=== PATIENT | male | born 1955 | race Caucasian/White ===

== ENCOUNTER 2017-04-01 23:54 | Emergency (ER) | payer BC, OTHER ==
[~2017-04-01] VITALS: Ht 185.4 cm; Wt 93.3 kg
[2017-04-01 23:56] VITALS: TEMP 36.7; Ht 185.4 cm; Wt 93.3 kg
[2017-04-02] MEDS ORDERED: ONDANSETRON INJ 2 MG/ML 2 ML VIAL IV STA (00:13)
[2017-04-02] MEDS ORDERED: MoRPHine SULFATE 4 MG/ML 1 ML CARP\\VIAL IV ONE ×2 (00:15→02:45)
[2017-04-02] MEDS ORDERED: SODIUM CHLORIDE 0.9% 1000ML 1,000 ML IV ONE (00:15)
[2017-04-02] MEDS ORDERED: MONT1TAB3 PO (00:21)
[2017-04-02] MEDS ORDERED: ALBU18002 INH (00:22)
[2017-04-02 00:55] LABS: BASO % 0.3 %; BASO ABS # 0.01 K/uL (0-0.2); COMPLETE YES; EOS % 2.4 %; HEMATOCRIT 40.9 % (42-52); IG% 0.3 %; LYMPH % 48.3 %; MEAN CELL VOLUME 87.4 fL (80-100); MEAN CORPUSCULAR HGB CONC 35.5 g/dl (32-36); MEAN PLATELET VOLUME 8.6 fL (7.4-10.4); MONO % 9.7 %; PLATELET COUNT 243 K/uL (130-400); RED BLOOD COUNT 4.68 M/uL (4.7-6.1); WHITE BLOOD COUNT 3.73 K/uL (4.8-10.8)
[2017-04-02 01:13] LABS: BUN/CREATININE RATIO 14.2 (10-20); CALCIUM 9.1 mg/dl (8.5-10.1); CREATININE 0.85 mg/dl (0.60-1.40); POTASSIUM 3.5 mmol/L (3.5-5.1)
[2017-04-02 01:16] LABS: ALB/GLOB RATIO 0.9 (0.9-2)
[2017-04-02 03:11] LABS: URINE APPEARANCE CLEAR (CLEAR); URINE BILIRUBIN NEG (NEG); URINE COLOR YELLOW; URINE NITRITE NEG (NEG); URINE PH 6.5 (4.5-7.5); UROBILINOGEN NEG (NEG); ZZUR CULT IF INDIC CLEAN CATCH NO
[2017-04-02 03:13] LABS: MANUAL MICROSCOPIC REQUIRED? NO; REVIEW REQ? NO
[2017-04-02] MEDS ORDERED: PANTOprazole SOD 40 MG TAB PO STA (04:12)
[2017-04-02] MEDS ORDERED: GI COCKTAIL PO ONE (04:15)
[2017-04-02] MEDS ORDERED: NORCO 5/325MG HOME PACK PO ONE (04:15)
[2017-04-02] MEDS ORDERED: PANT40TA PO (04:19)
[2017-04-02 04:25] VITALS: BP 134/85; PULSE 63; O2SAT 93
[2017-04-02] MEDS ORDERED: ALUMINUM/MAGNESIUM SUSP 30 ML UDC ONE (04:43)
[2017-04-02] MEDS ORDERED: LIDOCAINE HCL 2% VISC SOLN 20 ML UDC ONE (04:43)
--- NOTE | 2017-04-02 07:41 | DIAGNOSTIC IMAGING REPORT ---
CT SCAN OF THE ABDOMEN AND PELVIS WITHOUT IV CONTRAST CLINICAL HISTORY: Right lower quadrant abdominal pain. COMPARISON STUDY: Abdominal ultrasound dated 04/02/2017. TECHNIQUE: CT scan of the abdomen and pelvis is performed from the lung bases to the proximal femora. Images are reviewed in the axial, sagittal, and coronal planes. IV contrast was not administered for this examination as per the referring clinician due to a reported history of contrast allergy. Note that the examination is suboptimal without IV contrast. Oral contrast was utilized. Automated dose control exposure was utilized. CT DOSE: 727.94 mGy.cm FINDINGS: Lung bases: The heart is normal in size and without pericardial effusion. There is a 10 mm left lower lobe pulmonary nodule partially seen on image #1. The lung bases are otherwise clear. There is a small hiatal hernia. Liver: The unenhanced liver is normal in size, contour, and attenuation. There is no intrahepatic biliary ductal dilatation. Gallbladder: Unremarkable. Spleen: Normal in size and attenuation. Pancreas: Unremarkable. Adrenal glands: Unremarkable. Kidneys: The unenhanced kidneys are normal in size and without hydronephrosis. There are no renal calculi identified. There is no evidence of contour deforming renal mass lesion. Abdominal vasculature: The abdominal aorta is normal in course and caliber noting mild atherosclerotic calcification. Bowel: The small bowel and colon are normal in course and caliber. The appendix is well-visualized and normal. Peritoneum: There is no intraperitoneal free air or abdominal ascites. There is a fat-containing umbilical hernia. Lymphadenopathy: None. Pelvic viscera: The bladder, prostate, and seminal vesicles are normal as imaged. Skeletal structures: No lytic or blastic lesions are seen. IMPRESSION: 1. Suboptimal examination without IV contrast. 2. There are no acute infectious or inflammatory findings in the abdomen or pelvis. 3. A 10 mm left lower lobe pulmonary nodule is partially imaged. Follow-up with a nonemergent chest CT is recommended for further assessment of the thorax. Electronically signed by: Darwin Tavarez M.D. 04/02/2017 7:40 AM Dictated Date/Time: 04/02/2017 7:35 AM
--- NOTE | 2017-04-02 09:02 | DIAGNOSTIC IMAGING REPORT ---
ULTRASOUND RIGHT UPPER QUADRANT ABDOMEN CLINICAL HISTORY: Right-sided abdominal pain. COMPARISON STUDY: No priors. TECHNIQUE: Real-time, grayscale, and color flow sonography of the right upper quadrant of the abdomen was performed. Images are reviewed in the transverse and longitudinal planes. FINDINGS: Liver: The liver is normal in size and echotexture. There is no intrahepatic biliary ductal dilatation. The main portal vein is patent. Gallbladder: The gallbladder is normal in appearance. No gallstones are identified. There is no gallbladder wall thickening or pericholecystic fluid. A sonographic Taylor's sign is reportedly absent. The common bile duct measures up to 0.4 cm in diameter. Pancreas: Visualized portions of the pancreatic head are normal in appearance. The majority of the pancreas was not well seen. Right kidney: Survey images of the right kidney demonstrate normal size and echotexture. There is no hydronephrosis. Ascites: None. IMPRESSION: No acute sonographic abnormality is identified in the right upper quadrant. No gallstones are seen. Electronically signed by: Darwin Tavarez M.D. 04/02/2017 9:01 AM Dictated Date/Time: 04/02/2017 9:00 AM
--- NOTE | 2017-04-03 01:56 | EMERGENCY ROOM VISIT NOTE ---
History First contact with patient: 00:01 Chief Complaint: ABDOMINAL PAIN Stated Complaint: STOMACH PAINS Nursing Triage Summary: patient reports worsening abdominal and back pain,patient reports pain for 2 weeks History of Present Illness The patient is a 61 year old male who presents to the Emergency Room with complaints of abdominal pain for the past 2 weeks. The patient is intermittent and does not improve or worsen with food. The patient has not had fever or chills. He is nauseated without vomiting. No lower abdominal tenderness. He does not report a history of abdominal surgery in the past. The patient is usually healthy and rates his discomfort tonight a 7/10. He has not had recent travel history. He started [id number] Zantac today. Review of Systems More than 10 systems were reviewed and otherwise negative with the exception of history of present illness. Past Medical/Surgical History No pertinent chronic medical disease Family History No pertinent family history Social History Smoking Status: Never Smoker Housing Status: lives with family Current/Historical Medications Scheduled Albuterol Sulfate (Proair Respiclick), 1 DOSE INH DIRECTED Montelukast Sodium (Singulair), 10 MG PO DAILY Pantoprazole (Protonix), 40 MG PO DAILY Allergies Coded Allergies: Shellfish (Verified Allergy, Severe, anaphalaxis, 04/02/17) Tramadol (Unverified Allergy, Unknown, itchy, 04/02/17) Physical Exam Vital Signs Date Time Temp Pulse Resp B/P (MAP) Pulse Ox O2 Delivery O2 Flow Rate FiO2 04/02/17 04:25 63 17 134/85 93 Room Air 04/02/17 03:20 04/02/17 03:08 65 19 147/90 95 04/02/17 01:55 19 131/92 04/01/17 23:56 36.7 72 18 152/105 99 Room Air Pain Rating (0-10): 8.0 Physical Exam VITALS: Vitals are noted on the nurse's note and reviewed by myself. Vital signs stable. GENERAL: Well-developed, well-nourished, white male, who is in no acute distress and resting comfortably. Patient is cooperative with the examination. HEAD: Normocephalic atraumatic. HEART: Regular rate and rhythm without murmurs gallops or rubs. LUNGS: Clear to auscultation bilaterally without wheezes, rales or rhonchi. No retractions or accessory muscle use. ABDOMEN: Positive normal bowel sounds x 4. Soft with epigastric tenderness on palpation. No lower abdominal tenderness. No rebound. No guarding. MUSCULOSKELETAL: No muscle atrophy, erythema, or edema noted. Full range of motion without joint tenderness in all extremities. Medical Decision & Procedures ER Provider Diagnostic Interpretation: CT SCAN OF THE ABDOMEN AND PELVIS WITHOUT IV CONTRAST CLINICAL HISTORY: Right lower quadrant abdominal pain. COMPARISON STUDY: Abdominal ultrasound dated 04/02/2017. TECHNIQUE: CT scan of the abdomen and pelvis is performed from the lung bases to the proximal femora. Images are reviewed in the axial, sagittal, and coronal planes. IV contrast was not administered for this examination as per the referring clinician due to a reported history of contrast allergy. Note that the examination is suboptimal without IV contrast. Oral contrast was utilized. Automated dose control exposure was utilized. CT DOSE: 727.94 mGy.cm FINDINGS: Lung bases: The heart is normal in size and without pericardial effusion. There is a 10 mm left lower lobe pulmonary nodule partially seen on image #1. The lung bases are otherwise clear. There is a small hiatal hernia. Liver: The unenhanced liver is normal in size, contour, and attenuation. There is no intrahepatic biliary ductal dilatation. Gallbladder: Unremarkable. Spleen: Normal in size and attenuation. Pancreas: Unremarkable. Adrenal glands: Unremarkable. Kidneys: The unenhanced kidneys are normal in size and without hydronephrosis. There are no renal calculi identified. There is no evidence of contour deforming renal mass lesion. Abdominal vasculature: The abdominal aorta is normal in course and caliber noting mild atherosclerotic calcification. Bowel: The small bowel and colon are normal in course and caliber. The appendix is well-visualized and normal. Peritoneum: There is no intraperitoneal free air or abdominal ascites. There is a fat-containing umbilical hernia. Lymphadenopathy: None. Pelvic viscera: The bladder, prostate, and seminal vesicles are normal as imaged. Skeletal structures: No lytic or blastic lesions are seen. IMPRESSION: 1. Suboptimal examination without IV contrast. 2. There are no acute infectious or inflammatory findings in the abdomen or pelvis. 3. A 10 mm left lower lobe pulmonary nodule is partially imaged. Follow-up with a nonemergent chest CT is recommended for further assessment of the thorax. ULTRASOUND RIGHT UPPER QUADRANT ABDOMEN CLINICAL HISTORY: Right-sided abdominal pain. COMPARISON STUDY: No priors. TECHNIQUE: Real-time, grayscale, and color flow sonography of the right upper quadrant of the abdomen was performed. Images are reviewed in the transverse and longitudinal planes. FINDINGS: Liver: The liver is normal in size and echotexture. There is no intrahepatic biliary ductal dilatation. The main portal vein is patent. Gallbladder: The gallbladder is normal in appearance. No gallstones are identified. There is no gallbladder wall thickening or pericholecystic fluid. A sonographic Taylor's sign is reportedly absent. The common bile duct measures up to 0.4 cm in diameter. Pancreas: Visualized portions of the pancreatic head are normal in appearance. The majority of the pancreas was not well seen. Right kidney: Survey images of the right kidney demonstrate normal size and echotexture. There is no hydronephrosis. Ascites: None. IMPRESSION: No acute sonographic abnormality is identified in the right upper quadrant. No gallstones are seen. Laboratory Results 04/02/17 00:41 Red Blood Count 4.68, Mean Corpuscular Volume 87.4, Mean Corpuscular Hemoglobin 31.0, Mean Corpuscular Hemoglobin Concent 35.5, Mean Platelet Volume 8.6, Neutrophils (%) (Auto) 39.0, Lymphocytes (%) (Auto) 48.3, Monocytes (%) (Auto) 9.7, Eosinophils (%) (Auto) 2.4, Basophils (%) (Auto) 0.3, Neutrophils # (Auto) 1.46, Lymphocytes # (Auto) 1.80, Monocytes # (Auto) 0.36, Eosinophils # (Auto) 0.09, Basophils # (Auto) 0.01 04/02/17 00:41 Test 04/02/17 00:41 04/02/17 02:28 White Blood Count 3.73 K/uL (4.8-10.8) Red Blood Count 4.68 M/uL (4.7-6.1) Hemoglobin 14.5 g/dL (14.0-18.0) Hematocrit 40.9 % (42-52) Mean Corpuscular Volume 87.4 fL (80-100) Mean Corpuscular Hemoglobin 31.0 pg (25-34) Mean Corpuscular Hemoglobin Concent 35.5 g/dl (32-36) Platelet Count 243 K/uL (130-400) Mean Platelet Volume 8.6 fL (7.4-10.4) Neutrophils (%) (Auto) 39.0 % Lymphocytes (%) (Auto) 48.3 % Monocytes (%) (Auto) 9.7 % Eosinophils (%) (Auto) 2.4 % Basophils (%) (Auto) 0.3 % Neutrophils # (Auto) 1.46 K/uL (1.4-6.5) Lymphocytes # (Auto) 1.80 K/uL (1.2-3.4) Monocytes # (Auto) 0.36 K/uL (0.11-0.59) Eosinophils # (Auto) 0.09 K/uL (0-0.5) Basophils # (Auto) 0.01 K/uL (0-0.2) RDW Standard Deviation 41.3 fL (36.4-46.3) RDW Coefficient of Variation 13.0 % (11.5-14.5) Immature Granulocyte % (Auto) 0.3 % Immature Granulocyte # (Auto) 0.01 K/uL (0.00-0.02) Anion Gap 8.0 mmol/L (3-11) Est Creatinine Clear Calc Drug Dose 105.7 ml/min Estimated GFR () 110.5 Estimated GFR (Non- 95.4 BUN/Creatinine Ratio 14.2 (10-20) Calcium Level 9.1 mg/dl (8.5-10.1) Total Bilirubin 0.5 mg/dl (0.2-1) Aspartate Amino Transf (AST/SGOT) 43 U/L (15-37) Alanine Aminotransferase (ALT/SGPT) 80 U/L (12-78) Alkaline Phosphatase 58 U/L (45-117) Total Protein 7.4 gm/dl (6.4-8.2) Albumin 3.5 gm/dl (3.4-5.0) Globulin 3.9 gm/dl (2.5-4.0) Albumin/Globulin Ratio 0.9 (0.9-2) Lipase 157 U/L (73-393) Urine Color YELLOW Urine Appearance CLEAR (CLEAR) Urine pH 6.5 (4.5-7.5) Urine Specific [place] 1.010 (1.000-1.030) Urine Protein NEG (NEG) Urine Glucose (UA) NEG (NEG) Urine Ketones NEG (NEG) Urine Occult Blood NEG (NEG) Urine Nitrite NEG (NEG) Urine Bilirubin NEG (NEG) Urine Urobilinogen NEG (NEG) Urine Leukocyte Esterase NEG (NEG) Medications Administered Medications (Trade) Dose Ordered Sig/Sol Route Start Time Stop Time Status Last Admin Dose Admin Sodium Chloride 1,000 ml @ 999 mls/hr Q1H1M ONCE IV 04/02/17 00:15 04/02/17 01:15 DC 04/02/17 00:48 999 MLS/HR Morphine Sulfate (MoRPHine SULFATE INJ) 4 mg NOW ONCE IV 04/02/17 00:15 04/02/17 00:16 DC 04/02/17 00:49 4 MG Ondansetron HCl (Zofran Inj) 4 mg NOW STAT IV 04/02/17 00:13 04/02/17 00:16 DC 04/02/17 00:48 4 MG Morphine Sulfate (MoRPHine SULFATE INJ) 4 mg NOW ONCE IV 04/02/17 02:45 04/02/17 02:46 DC 04/02/17 02:50 4 MG Pantoprazole Sodium (Protonix Tab) 40 mg NOW STAT PO 04/02/17 04:12 04/02/17 04:13 DC 04/02/17 04:18 40 MG Acetaminophen/ Hydrocodone Bitart (Jackpot 5/325mg Home Pack) 1 homepack UD ONCE PO 04/02/17 04:15 04/02/17 04:16 DC 04/02/17 04:25 1 HOMEPACK Al Hydroxide/Mg Hydroxide (Maalox Susp) 30 ml STK-MED ONCE .ROUTE 04/02/17 04:43 04/02/17 04:44 DC 04/02/17 04:21 30 ML Lidocaine HCl (Viscous Lidocaine 2% Soln) 20 ml STK-MED ONCE .ROUTE 04/02/17 04:43 04/02/17 04:44 DC 04/02/17 04:21 20 ML ED Course Physical exam and history were performed. Nursing notes and EMR were reviewed. Patient appears to have reports of epigastric and right-sided abdominal pain for the past 2 weeks. He states his pain is worse tonight. IV access was established and labs were obtained. The patient was hydrated and medicated as above. Both CT scan and ultrasound were performed. The patient's blood work is as above and was reviewed. He does not have a significantly elevated white blood cell count, gross anemia, bandemia, or significant electrolyte imbalance. Lipase is nondiagnostic. Transaminases are just very slightly elevated. Ultrasound does not show evidence of biliary etiology. CT scan is without acute findings as well. There is an incidental pulmonary nodule which will need to be followed up as an outpatient. Of note, the patient is not a smoker. Overall the patient appears stable for discharge home. His symptoms correlate with an esophagitis, which was the reading on the [facility] report. The patient will be started on Protonix with his first dose starting here in the department. The patient will be given information to follow with GI. He was otherwise invited back to the ER with any new, worsening, or concerning symptoms. The chart was completed utilizing [employer] Speech Voice Recognition Software. Grammatical errors, random word insertions, pronoun errors, and incomplete sentences are an occasional consequence of this system due to software limitations, ambient noise, and hardware issues. Any formal questions or concerns about the content, text, or information contained within the body of this dictation should be directly addressed to the provider for clarification. . Medical Decision Differential diagnosis: Etiologies such as appendicitis, diverticulitis, PUD, biliary pathology, UTI, pancreatitis, obstruction, mesenteric ischemia, aortic pathology, infections, inflammatory bowel disease, renal colic, as well as others were entertained. Impression Primary Impression: Esophagitis Additional Impression: Incidental pulmonary nodule, greater than or equal to 8mm Departure Information Dispostion Home / Self-Care Condition GOOD Prescriptions Pantoprazole (Protonix) 40 Mg Tab 40 MG PO DAILY for 14 Days, #14 TAB Prov: Vivek Spain PA-C 04/02/17 Referrals David Hernandez MD Forms Call Back Authorization, HOME CARE DOCUMENTATION FORM, IMPORTANT VISIT INFORMATION Patient Instructions Esophagitis, My [facility] Additional Instructions You were seen and evaluated today on an emergency basis only. This is not a substitute for, or an effort to provide, complete comprehensive medical care. It is not possible to recognize and treat all injuries or illnesses in a single emergency department visit. For this reason it is recommended that you followup with Gastroenterology, Dr. Hernandez's office, by telephone to schedule a follow-up appointment. Let the office know you're seen in the emergency department to help make an appointment. It is also highly recommended that you follow with your primary care physician for your symptoms. You have an incidental pulmonary nodule on your CT scan of your abdomen. This will require a dedicated CT scan of your chest. This is a nonemergent study that should be ordered by your primary care physician. Take Protonix 40 mg daily for the next 2 weeks. Your first dose was provided today here in the department. Jackpot (hydrocodone/acetaminophen) 5/325 mg (hompack) every 6 hours as needed for worsening breakthrough pain. Do not drink or drive on Jack[place]. This medication will likely make you tired. Do not take Jackpot and Tylenol at the same time as both contain acetaminophen. Jackpot may cause constipation. You may wish to take an [id number]-[id number] stool softener like Colace if this occurs. You are welcome to return to the emergency department anytime with new, worsening, or concerning symptoms. Problem Qualifiers
== END 2017-04-02 04:30 | disposition home or self-care (01) ==
LOC: C.EDB 23:56
DX: K20.9 Esophagitis, unspecified (principal); R91.1 Solitary pulmonary nodule; Z79.899 Other long term (current) drug therapy

== ENCOUNTER → 2017-04-12 | Outpatient (CLI) | payer BC ==
[~2017-04-12] MED LIST: ALBU18002 INH; MONT1TAB3 PO; PANT40TA PO
--- NOTE | 2017-04-12 13:46 | DIAGNOSTIC IMAGING REPORT ---
(CHEST) THORAX WITHOUT CLINICAL HISTORY: PULMONARY NODULE COMPARISON STUDY: CT scan the abdomen pelvis dated 04/02/2017 CT DOSE: 521.31 mGycm TECHNIQUE: CT of the thorax was performed from the thoracic inlet to the lung bases. Images are reviewed in the axial, sagittal, and coronal planes. IV contrast was not administered for this examination. FINDINGS: Thyroid: Imaged portions of the thyroid gland are normal in appearance. Thoracic aorta: The thoracic aorta is normal in course and caliber, noting standard 3 vessel arch anatomy. Heart: The heart is normal in size and configuration, without pericardial effusion. Lungs and pleural spaces: There is no focal pulmonary consolidation. There are no pleural effusions. There is a 9 mm solid pleural-based left lower lobe pulmonary nodule as visualized in image #143/316. The pulmonary artery leading up to this nodule is a beaded. The significance of this is not known. There is a 6 mm solid pleural-based right lower lobe pulmonary nodule as visualized in image #136/316. There is a 3 mm solid left lower lobe pulmonary nodule as visualized in image #121/316. Mediastinum: Mediastinal lymph nodes are the upper limits of normal in size. Elizabeth: There is no evidence of pathologic hilar adenopathy given the limitations of a noncontrast study Axilla: There is no evidence of pathologic adenopathy Upper abdomen: Partially visualized upper abdominal viscera is within normal limits. Skeletal structures: There are no lytic or blastic osseous lesions. IMPRESSION: 1. Bilateral solid subcentimeter pulmonary nodules, the largest of which is located within the left lower lobe measuring [address] follow-up in 3-6 months is recommended. Please refer to below summary of Fleischner criteria recommendations for follow-up of incidental CT nodules (Deven Beatty, Guidelines for management of small pulmonary nodules detected on CT scans: A statement from the Fleischner Society, Radiology 237: [phone].) SOLID NODULES Solitary nodule size: <6 mm * low risk patients: no follow-up needed * high risk patients: optional CT at 12 months Solitary nodule size: 6-8 mm * low risk patients: follow-up at 6-12 months, then consider further follow-up at 18-24 months * high risk patients: initial follow-up CT at 6-12 months and then at 18-24 months if no change Solitary nodule size: >8 mm * either low or high risk patients - consider follow-up CT at 3 months, and/or CT-PET, and/or biopsy Multiple nodules size: <6 mm * low risk patients: no routine follow-up * high risk patients: optional CT at 12 months Multiple nodules size: 6-8 mm * low risk patients: follow-up at 3-6 months, then consider further follow-up at 18-24 months * high risk patients: follow-up at 3-6 months, then at 18-24 months if no change Multiple nodules size: >8 mm * low risk patients: follow-up at 3-6 months, then consider further follow-up at 18-24 months * high risk patients: follow-up at 3-6 months, then at 18-24 months if no change Note: newly detected indeterminate nodule in persons 35 years of age or older. * low risk patients: minimal or absent history of smoking and/or other known risk factors * high risk patients: history of smoking or of other known risk factors (e.g. first degree relative with lung cancer, or exposure to asbestos, radon, uranium) * if a nodule up to 8 mm is partly solid or is ground glass further follow-up is required after 24 months to exclude possible slow growing adenocarcinoma (ISABELLA) SUBSOLID NODULES Solitary pure ground-glass nodule * nodule size <6 mm - no CT follow-up required * nodule size >=6 mm - follow-up CT at 6-12 months, then every 2 years until 5 years Solitary part-solid nodule * nodule size <6 mm - no CT follow-up required * nodule size >=6 mm - follow-up CT at 3-6 months. If unchanged, and solid component remains <6 mm, then annual follow-up for 5 years Multiple subsolid nodules * nodule size <6 mm - follow-up CT at 3-6 months, consider further follow-up at 2 and 4 years if stable * nodule size >=6 mm - follow-up CT at 3-6 months, subsequent management based on the most suspicious nodule(s) Electronically signed by: Luis Allen M.D. 04/12/2017 1:44 PM Dictated Date/Time: 04/12/2017 1:33 PM
== END | disposition home or self-care (01) ==
LOC: C.CTS 12:58
PROVIDERS: ATTEND Nurse Practitioner Family
DX: R91.1 Solitary pulmonary nodule (principal)

== ENCOUNTER → 2017-09-02 | Outpatient (CLI) | payer BC ==
[~2017-09-02] MED LIST changes: -PANT40TA PO
--- NOTE | 2017-09-02 12:30 | DIAGNOSTIC IMAGING REPORT ---
(CHEST) THORAX WITHOUT CT DOSE: 491.00 mGycm HISTORY: Pulmonary nodules R91.8 Multiple pulmonary [id number] TECHNIQUE: Multiaxial CT images of the chest were performed without contrast. A dose lowering technique was utilized adhering to the principles of ALARA. COMPARISON: 04/12/2017 FINDINGS: Several parenchymal nodules throughout the hemithoraces as described previously. Current study all are unchanged from the prior exam. There is no evidence for new interval or progressive process. There are no focal infiltrative changes. There is no significant mediastinal or hilar adenopathy. Several small reactive nodes are present. Limited evaluation of the upper abdomen is unremarkable. Axillary regions are unremarkable as well. IMPRESSION: 1. Stable bilateral pulmonary nodularity compared to the prior exam. 2. No evidence for new interval or progressive nodule or process. 3. Several small stable mediastinal and axillary nodes. 4. Follow-up per Fleischner criteria. Please refer to below summary of Fleischner criteria recommendations for follow-up of incidental CT nodules (Deven Beatty, Guidelines for management of small pulmonary nodules detected on CT scans: A statement from the Fleischner Society, Radiology 237: [phone].) SOLID NODULES Solitary nodule size: <6 mm * low risk patients: no follow-up needed * high risk patients: optional CT at 12 months Solitary nodule size: 6-8 mm * low risk patients: follow-up at 6-12 months, then consider further follow-up at 18-24 months * high risk patients: initial follow-up CT at 6-12 months and then at 18-24 months if no change Solitary nodule size: >8 mm * either low or high risk patients - consider follow-up CT at 3 months, and/or CT-PET, and/or biopsy Multiple nodules size: <6 mm * low risk patients: no routine follow-up * high risk patients: optional CT at 12 months Multiple nodules size: 6-8 mm * low risk patients: follow-up at 3-6 months, then consider further follow-up at 18-24 months * high risk patients: follow-up at 3-6 months, then at 18-24 months if no change Multiple nodules size: >8 mm * low risk patients: follow-up at 3-6 months, then consider further follow-up at 18-24 months * high risk patients: follow-up at 3-6 months, then at 18-24 months if no change Note: newly detected indeterminate nodule in persons 35 years of age or older. * low risk patients: minimal or absent history of smoking and/or other known risk factors * high risk patients: history of smoking or of other known risk factors (e.g. first degree relative with lung cancer, or exposure to asbestos, radon, uranium) * if a nodule up to 8 mm is partly solid or is ground glass further follow-up is required after 24 months to exclude possible slow growing adenocarcinoma (ISABELLA) SUBSOLID NODULES Solitary pure ground-glass nodule * nodule size <6 mm - no CT follow-up required * nodule size >=6 mm - follow-up CT at 6-12 months, then every 2 years until 5 years Solitary part-solid nodule * nodule size <6 mm - no CT follow-up required * nodule size >=6 mm - follow-up CT at 3-6 months. If unchanged, and solid component remains <6 mm, then annual follow-up for 5 years Multiple subsolid nodules * nodule size <6 mm - follow-up CT at 3-6 months, consider further follow-up at 2 and 4 years if stable * nodule size >=6 mm - follow-up CT at 3-6 months, subsequent management based on the most suspicious nodule(s) . The above report was generated using voice recognition software. It may contain grammatical, syntax or spelling errors. Electronically signed by: Oleg Sinha M.D. 09/02/2017 12:29 PM Dictated Date/Time: 09/02/2017 12:24 PM
== END | disposition home or self-care (01) ==
LOC: C.CTS 12:05
PROVIDERS: ATTEND Physician Assistant Medical
DX: R91.8 Other nonspecific abnormal finding of lung field (principal)